=== PATIENT | male | born 1945 | race Caucasian/White ===

== ENCOUNTER 2018-04-30 22:21 | Inpatient (IN) | payer OTHER ==
[2018-04-30] MEDS ORDERED: ASPIRIN 81 MG CHEWABLE TABLET ONE (22:50)
[2018-04-30 23:03] LABS: Absolute Lymphocytes (CBC) 2.1 K/uL (0.7-4.9); Absolute Monocytes 1.1 K/uL (0.1-1.3); Absolute Neutrophil 9.4 K/uL (1.8-8.0); Basophils % 0.9 % (0-1.3); Eosinophils % 0.4 % (0-4.4); Hematocrit 47.3 % (39.6-49.0); Lymphocytes % 16.5 % (15.3-44.8); MCH 31.2 pg (27.0-35.0); MCV 93.3 fL (80-100); MPV 8.7 fL (7.6-11.3); Monocytes % 8.8 % (3.3-12.3); RBC Red Blood Cell Count 5.07 M/uL (4.33-5.43)
[2018-04-30 23:09] LABS: Protime INR 1.03
[2018-04-30 23:21] LABS: ALT/SGPT 16 U/L (12-78); AST/SGOT 12 U/L (15-37); Albumin 3.8 g/dL (3.4-5.0); Alkaline Phosphatase 108 U/L (45-117); BUN Blood Urea Nitrogen 20 mg/dL (7-18); Bicarbonate 25 mmol/L (21-32); Bilirubin Direct 0.2 mg/dL (0-0.2); Bilirubin Total 0.6 mg/dL (0.2-1.0); Glucose Level 112 mg/dL (74-106); Magnesium 2.3 mg/dL (1.8-2.4); NT PRO-BNP 350 pg/mL (<125); Protein, Total 8.1 g/dL (6.4-8.2); Sodium Level 140 mmol/L (136-145); Troponin (Emerg Dept Use Only) < 0.02 ng/mL (0.0-0.045)
[2018-05-01] MEDS ORDERED: MORPHINE 4 MG/ML SYR IV PRN (00:03)
[2018-05-01] MEDS ORDERED: MORPHINE 2 MG/ML SYR ONE (00:14)
--- NOTE | 2018-05-01 00:14 | ER ---
Nurse's Notes [facility] Name: Rian Quinteros Age: 72 yrs Sex: Male : 1945 Arrival Date: 04/30/2018 Time: 22:24 Bed 13 Private MD: Diagnosis: Chest pain, unspecified Presentation: 04/30 22:32 Presenting complaint: EMS states: "He lives on a boat, and has been having chest pain jd3 for 2 days. today the [employer] and us picked him up for general weakness and chest pain.". Transition of care: patient was not received from another setting of care. Onset of symptoms was April 28, 2018. Risk Assessment: Do you want to hurt yourself or someone else? Patient reports no desire to harm self or others. Initial Sepsis Screen: Does the patient meet any 2 criteria? No. Patient's initial sepsis screen is negative. Does the patient have a suspected source of infection? No. Patient's initial sepsis screen is negative. Care prior to arrival: None. 22:32 Method Of Arrival: EMS: [facility] jd3 22:32 Acuity: SHALOM 3 jd3 Triage Assessment: 22:40 General: Appears in no apparent distress. comfortable, Behavior is calm, cooperative, cc3 appropriate for age. Historical: - Allergies: 22:36 No Known Allergies; jd3 - Home Meds: 22:36 None [Active]; jd3 - PMHx: 22:36 Hypertension; Myocardial infarction; jd3 - PSHx: 22:36 Heart stents; Heart Surgery; Carpal Tunnel Repair; Hernia repair; jd3 - Immunization history:: Adult Immunizations not up to date. - Social history:: Smoking status: Patient uses tobacco products, smokes one pack cigarettes per day. - Ebola Screening: : Patient negative for fever greater than or equal to 101.5 degrees Fahrenheit, and additional compatible Ebola Virus Disease symptoms. Screenin:39 Abuse screen: Denies threats or abuse. Nutritional screening: No deficits noted. jd3 Tuberculosis screening: No symptoms or risk factors identified. Fall Risk Ambulatory Aid- None/Bed Rest/Nurse Assist (0 pts). Gait- Weak (10 pts.). Mental Status- Oriented to own ability (0 pts). Total Evans Fall Scale indicates No Risk (0-24 pts). Assessment: 22:37 General: Appears in no apparent distress. comfortable. Pain: Complains of pain in chest cc3 Pain does not radiate. Pain began 2 hours ago. Neuro: Level of Consciousness is awake, alert, obeys commands, Oriented to person, place, time, situation, Appropriate for age. Cardiovascular: Reports chest pain. Respiratory: Airway is patent Respiratory effort is even, unlabored, Respiratory pattern is regular, symmetrical. GI: Abdomen is round non-distended. : No signs and/or symptoms were reported regarding the genitourinary system. EENT: No signs and/or symptoms were reported regarding the EENT system. Derm: Wound noted right forearm. Musculoskeletal: Circulation, motion, and sensation intact. Range of motion: intact in all extremities. 23:30 Reassessment: Patient appears in no apparent distress at this time. Patient and/or cc3 family updated on plan of care and expected duration. Pain level reassessed. Patient is alert, oriented x 3, equal unlabored respirations, skin warm/dry/pink. 05/01 00:15 Reassessment: Patient appears in no apparent distress at this time. Patient and/or cc3 family updated on plan of care and expected duration. Pain level reassessed. Patient is alert, oriented x 3, equal unlabored respirations, skin warm/dry/pink. 01:15 Reassessment: Patient appears in no apparent distress at this time. Patient and/or cc3 family updated on plan of care and expected duration. Pain level reassessed. Patient is alert, oriented x 3, equal unlabored respirations, skin warm/dry/pink. Patient for admission, room available in 420. Report handed over to MAGGI Quinn for continuity of care. 01:30 Reassessment: Patient left ER for admission vitally stable by wheelchair escorted by MAGGI Casper. Vital Signs: 04/30 22:36 BP 163 / 93; Pulse 70; Resp 17 S; Temp 99.9(O); Pulse Ox 99% on R/A; Weight 68.04 kg jd3 (R); Height 6 ft. 1 in. (185.42 cm) (R); Pain 06/03; 23:24 BP 172 / 90; Pulse 73; Resp 18 S; Pulse Ox 98% on R/A; cc3 05/01 00:20 BP 163 / 75; Pulse 75; Resp 17 S; Pulse Ox 98% on R/A; cc3 01:02 BP 157 / 88; Pulse 65; Resp 14 S; Pulse Ox 97% on R/A; cc3 04/30 22:36 Body Mass Index 19.79 (68.04 kg, 185.42 cm) jd3 ED Course: 04/30 22:24 Patient arrived in ED. ds1 22:30 Dallas Hensley PA is PHCP. cp 22:30 Reid Hoskins MD is Attending Physician. cp 22:35 Triage completed. jd3 22:37 Mayuri Arrington is Primary Nurse. cc3 22:38 Arm band placed on. EKG completed in triage. Results shown to MD. jd3 22:38 Patient maintains SpO2 saturation greater than 95% on room air. jd3 22:39 Patient has correct armband on for positive identification. Placed in gown. Bed in low jd3 position. Call light in reach. Side rails up X 1. equipment monitor phototypesetting on. Pulse ox on. NIBP on. 22:46 XRAY Chest (1 view) In Process Unspecified. EDMS 22:50 Inserted saline lock: 20 gauge in left antecubital area, using aseptic technique. Blood cc3 collected. 05/01 00:13 George Hazel MD is Hospitalizing Provider. cp 01:15 No provider procedures requiring assistance completed. cc3 01:15 Patient admitted, IV remains in place. cc3 Administered Medications: 04/30 22:45 Drug: Aspirin Chewable Tablet 324 mg Route: PO; cc3 23:00 Follow up: Response: No adverse reaction cc3 05/01 00:05 Drug: Metoprolol 25 mg Route: PO; cc3 01:00 Follow up: Response: No adverse reaction; Blood pressure is lowered cc3 00:07 Drug: NS 0.9% 250 ml Route: IV; Rate: bolus; Site: left antecubital; cc3 00:35 Follow up: Response: No adverse reaction; IV Status: Completed infusion; IV Intake: cc3 250ml 00:10 Drug: morphine 2 mg Route: IVP; Site: left antecubital; cc3 00:30 Follow up: Response: No adverse reaction; Pain is decreased cc3 00:40 Drug: NS 0.9% 1000 ml Route: IV; Rate: 75 ml/hr; Site: left antecubital; cc3 01:07 Follow up: Response: No adverse reaction; IV Status: Infusion continued upon admission cc3 Intake: 00:35 IV: 250ml; Total: 250ml. cc3 Outcome: 00:13 Decision to Hospitalize by Provider. cp 01:15 Admitted to Tele accompanied by nurse, via wheelchair, room 420, with chart, Report cc3 called to MAGGI Quinn 01:15 Condition: stable 01:15 Instructed on the need for admit, Demonstrated understanding of instructions. 01:32 Patient left the ED. cc3 Signatures: Dispatcher [employer] EDME AguillonJenn barillas ds1 Dallas Hensley PA PA cp Davies, Jonathon, RN RN jd3 Mayuri Arrington cc3 Corrections: (The following items were deleted from the chart) 04:32 01:30 Reassessment: Patient left ER for admission vitally stable by wheelchair. cc3 cc3
--- NOTE | 2018-05-01 00:14 | EDPHYS ---
Physician Documentation [facility] Name: Rian Quinteros Age: 72 yrs Sex: Male : 1945 Arrival Date: 04/30/2018 Time: 22:24 Bed 13 Private MD: ED Physician Reid Hoskins HPI: 04/30 22:35 This 72 yrs old Male presents to ER via EMS with complaints of Chest Pain. cp 22:35 Onset: The symptoms/episode began/occurred 2 day(s) ago. cp 22:35 The patient or guardian reports chest pain that is located primarily in the anterior cp chest wall, left. 22:35 The pain does not radiate. Associated signs and symptoms: Pertinent positives: general cp weakness, Pertinent negatives: abdominal pain, cough, diaphoresis, dizziness, headache, lower extremity pain, lower extremity swelling, palpitations, shortness of breath, syncope, vomiting. The chest pain is described as aching. Duration: The patient or guardian reports multiple episodes, that wax and wane. Historical: - Allergies: 22:36 No Known Allergies; jd3 - Home Meds: 22:36 None [Active]; jd3 - PMHx: 22:36 Hypertension; Myocardial infarction; jd3 - PSHx: 22:36 Heart stents; Heart Surgery; Carpal Tunnel Repair; Hernia repair; jd3 - Immunization history:: Adult Immunizations not up to date. - Social history:: Smoking status: Patient uses tobacco products, smokes one pack cigarettes per day. - Ebola Screening: : Patient negative for fever greater than or equal to 101.5 degrees Fahrenheit, and additional compatible Ebola Virus Disease symptoms. ROS: 22:40 Constitutional: Negative for body aches, chills, fever, poor PO intake. cp 22:40 Eyes: Negative for injury, pain, redness, and discharge. cp 22:40 ENT: Negative for drainage from ear(s), ear pain, sore throat, difficulty swallowing, difficulty handling secretions. 22:40 Cardiovascular: Positive for chest pain, Negative for edema, palpitations. 22:40 Respiratory: Negative for cough, shortness of breath, wheezing. 22:40 Abdomen/GI: Negative for abdominal pain, vomiting, diarrhea, constipation, anorexia, black/tarry stool, rectal bleeding. 22:40 Back: Negative for pain at rest, pain with movement. 22:40 : Negative for urinary symptoms. 22:40 Skin: Negative for cellulitis, rash. 22:40 Neuro: Positive for general weakness, Negative for altered mental status, dizziness, headache, syncope, near syncope. 22:40 All other systems are negative. Exam: 22:35 ECG was reviewed by the Attending Physician. cp 22:45 Constitutional: The patient appears in no acute distress, alert, awake, cp non-diaphoretic, non-toxic, well developed, well nourished. 22:45 Head/Face: Normocephalic, atraumatic. Eyes: Pupils equal round and reactive to light, cp extra-ocular motions intact. Lids and lashes normal. Conjunctiva and sclera are non-icteric and not injected. Cornea within normal limits. Periorbital areas with no swelling, redness, or edema. ENT: Nares patent. No nasal discharge, no septal abnormalities noted. Tympanic membranes are normal and external auditory canals are clear. Oropharynx with no redness, swelling, or masses, exudates, or evidence of obstruction, uvula midline. Mucous membranes moist. Neck: Trachea midline, no thyromegaly or masses palpated, and no cervical lymphadenopathy. Supple, full range of motion without nuchal rigidity, or vertebral point tenderness. No Meningismus. Chest/axilla: Normal chest wall appearance and motion. Nontender with no deformity. No lesions are appreciated. 22:45 Cardiovascular: Rate: normal, Rhythm: regular, Pulses: Pulses are 2+ in right radial artery and left radial artery. Heart sounds: murmur, not appreciated, rub, not appreciated, gallop, not appreciated, Edema: is not appreciated, JVD: is not appreciated. 22:45 Respiratory: the patient does not display signs of respiratory distress, Respirations: normal, no use of accessory muscles, no retractions, no splinting, no tachypnea, labored breathing, is not present, Breath sounds: are clear throughout, no decreased breath sounds, no stridor, no wheezing. 22:45 Abdomen/GI: Inspection: abdomen appears normal, Bowel sounds: active, all quadrants, Palpation: abdomen is soft and non-tender, in all quadrants. 22:45 Back: pain, is absent, ROM is normal. 22:45 Skin: cellulitis, is not appreciated, no rash present. 22:45 Neuro: Orientation: to person, place \T\ time. Mentation: is normal, Cerebellar function: is grossly normal, Motor: moves all fours, strength is normal, Sensation: is normal. Vital Signs: 22:36 BP 163 / 93; Pulse 70; Resp 17 S; Temp 99.9(O); Pulse Ox 99% on R/A; Weight 68.04 kg jd3 (R); Height 6 ft. 1 in. (185.42 cm) (R); Pain /; 23:24 BP 172 / 90; Pulse 73; Resp 18 S; Pulse Ox 98% on R/A; cc3 05/01 00:20 BP 163 / 75; Pulse 75; Resp 17 S; Pulse Ox 98% on R/A; cc3 01:02 BP 157 / 88; Pulse 65; Resp 14 S; Pulse Ox 97% on R/A; cc3 04/30 22:36 Body Mass Index 19.79 (68.04 kg, 185.42 cm) jd3 MDM: 04/30 22:31 Patient medically screened. cp 23:59 Data reviewed: vital signs, nurses notes, lab test result(s), EKG, radiologic studies, cp plain films. Response to treatment: the patient's symptoms have markedly improved after treatment, and as a result, I will admit patient. Physician consultation: George Hazel MD was called at 00:00, was contacted at 00:00, regarding admission, to the telemetry unit. patient's condition. 12 22:31 Order name: Basic Metabolic Panel; Complete Time: 23:36 cp 12 23:36 Interpretation: Normal except: GLUC 112; BUN 20; GFR 54. cp 04/30 22:31 Order name: CBC with Diff; Complete Time: 23:36 cp 04/30 23:37 Interpretation: Normal except: WBC 12.8; NEUT A 9.4. cp 04/30 22:31 Order name: LFT's; Complete Time: 23:36 cp 04/30 23:57 Interpretation: Normal except: AST 12; GLOB 4.3; A/G 0.9. cp 04/30 22:31 Order name: Magnesium; Complete Time: 23:36 cp 04/30 22:31 Order name: NT PRO-BNP; Complete Time: 23:36 cp 04/30 23:58 Interpretation: NT PRO-BNP 350. cp 04/30 22:31 Order name: PT-INR; Complete Time: 23:36 cp 04/30 22:31 Order name: Troponin (emerg Dept Use Only); Complete Time: 23:36 cp 05/01 00:13 Order name: Basic Metabolic Panel EDMS 05/01 00:13 Order name: Basic Metabolic Panel EDMS 05/01 00:13 Order name: CBC with Automated Diff EDMS 05/01 00:13 Order name: CBC with Automated Diff EDMS 05/01 00:13 Order name: Lipid Profile EDMS 05/01 00:14 Order name: Lipid Profile EDMS 05/01 00:14 Order name: Troponin I EDMS 04/30 22:31 Order name: XRAY Chest (1 view) cp 04/30 22:31 Order name: EKG; Complete Time: 22:32 cp 04/30 22:31 Order name: Cardiac monitoring; Complete Time: 22:38 cp 04/30 22:31 Order name: EKG - Nurse/Tech; Complete Time: 22:38 cp 05/01 00:13 Order name: CONS Physician Consult EDMS 05/01 00:13 Order name: Heart Healthy EDMS 05/01 00:13 Order name: EKG Electrocardiogram EDMS 05/01 00:13 Order name: EKG Electrocardiogram EDMS 05/01 00:13 Order name: EKG Electrocardiogram EDMS 05/01 00:14 Order name: Troponin I EDMS 05/01 00:14 Order name: Troponin I EDMS 04/30 22:31 Order name: IV Saline Lock; Complete Time: 23:02 cp 04/30 22:31 Order name: Labs collected and sent; Complete Time: 23:03 cp 04/30 22:31 Order name: O2 Per Protocol; Complete Time: 22:38 cp 04/30 22:31 Order name: O2 Sat Monitoring; Complete Time: 22:38 cp 04/30 23:37 Order name: Urine Dipstick-Ancillary (obtain specimen); Complete Time: 04:34 cp EC:35 Rate is 70 beats/min. Rhythm is regular. RI interval is prolonged at 208 msec. QRS cp interval is prolonged at 102 msec. QT interval is normal. Interpreted by me. Reviewed by me. Administered Medications: 22:45 Drug: Aspirin Chewable Tablet 324 mg Route: PO; cc3 23:00 Follow up: Response: No adverse reaction cc3 05/01 00:05 Drug: Metoprolol 25 mg Route: PO; cc3 01:00 Follow up: Response: No adverse reaction; Blood pressure is lowered cc3 00:07 Drug: NS 0.9% 250 ml Route: IV; Rate: bolus; Site: left antecubital; cc3 00:35 Follow up: Response: No adverse reaction; IV Status: Completed infusion; IV Intake: cc3 250ml 00:10 Drug: morphine 2 mg Route: IVP; Site: left antecubital; cc3 00:30 Follow up: Response: No adverse reaction; Pain is decreased cc3 00:40 Drug: NS 0.9% 1000 ml Route: IV; Rate: 75 ml/hr; Site: left antecubital; cc3 01:07 Follow up: Response: No adverse reaction; IV Status: Infusion continued upon admission cc3 Disposition: 06:20 Co-signature as Attending Physician, Reid Hoskins MD Available for consultation at ps1 all times. . Disposition: 05/01/18 00:13 Hospitalization ordered by George Hazel for Observation. Preliminary diagnosis is Chest pain, unspecified. - Bed requested for Telemetry/MedSurg (observation). - Status is Observation. cc3 - Condition is Stable. - Problem is new. - Symptoms have improved. UTI on Admission? No Signatures: Dispatcher [employer] EDMichelle Jimenes RN RN Dallas Sheldon PA PA cp Davies, Jonathon, RN RN jd3 Singer, Phillip, MD MD ps1 Cordel, Charlene cc3 Corrections: (The following items were deleted from the chart) 04/30 23:37 23:37 Normal except: WBC 12.8. cp cp 05/01 00:31 00:13 Hospitalization Ordered by George Hazel MD for Observation. Preliminary mw diagnosis is Chest pain, unspecified. Bed requested for Telemetry/MedSurg (observation). Status is Observation. Condition is Stable. Problem is new. Symptoms have improved. UTI on Admission? No. cp 01:32 00:31 05/01/2018 00:13 Hospitalization Ordered by George Hazel MD for Observation. cc3 Preliminary diagnosis is Chest pain, unspecified. Bed requested for Telemetry/MedSurg (observation). Status is Observation. Condition is Stable. Problem is new. Symptoms have improved. UTI on Admission? No. mw
[2018-05-01] MEDS ORDERED: METOPROLOL TAR 25 MG TAB ONE (00:15)
[2018-05-01] MEDS ORDERED: NA CHLORIDE 0.9% 250 ML ONE (00:15)
[2018-05-01] MEDS ORDERED: NA CHLORIDE 0.9% 1,000 ML ONE (00:15)
[2018-05-01] MEDS: NA CHLORIDE 0.9% 1,000 ML IV SCH ×2 (02:37→13:29)
[2018-05-01 03:02] VITALS: BMI 19.8
[2018-05-01 04:15] LABS: Urine Appearance CLEAR; Urine Bilirubin NEGATIVE (NEG); Urine Blood 2+ (NEG); Urine Color YELLOW; Urine Glucose NEGATIVE (NEG); Urine Protein 2+ (NEG); Urine Specific Gravity 1.025 (1.005-1.030); Urine pH 5.5 (5.0-7.0)
[2018-05-01 04:55] LABS: Urine Microscopic Reflex ORDER UMIC
[2018-05-01 05:24] LABS: Urine Bacteria <20 /HPF (NONE SEEN); Urine Culture Reflex Order REFLEXED
[2018-05-01] MEDS ORDERED: PNEUMOCOCCAL VACCINE 0.5 ML IMVAC ONE (09:00)
[2018-05-01] MEDS ORDERED: INFLUENZA VACCINE (for 3y+) 0.5 ML DOSE IMVAC ONE (09:00)
--- NOTE | 2018-05-01 09:30 | RAD REPORT ---
EXAM DESCRIPTION: Jack Single View04/30/2018 10:46 pm CLINICAL HISTORY: Chest pain COMPARISON: none FINDINGS: The lungs appear clear of acute infiltrate. The heart is normal size. Lungs are moderatel y hyperaerated IMPRESSION: COPD without visualization acute abnormality
[2018-05-01] MEDS: METOPROLOL TAR 50 MG TAB PO SCH ×2 (09:57→21:34)
[2018-05-01] MEDS: ENOXAPARIN 40 MG/0.4 ML SQ SCH (09:57)
[2018-05-01] MEDS: ASPIRIN EC 81 MG TAB PO SCH (09:58)
[2018-05-01] MEDS: ACETAMINOPHEN 500 MG TAB PO PRN ×2 (10:04→23:43)
--- NOTE | 2018-05-01 15:22 | P.HP ---
Certification for Inpatient Patient admitted to: Observation With expected LOS: <2 Midnights Patient will require the following post-hospital care: None Practitioner: I am a practitioner with admitting privileges, knowledge of patient current condition, hospital course, and medical plan of care. Services: Services provided to patient in accordance with Admission requirements found in Title 42 Section 412.3 of the Code of Federal Regulations Patient History Date of Service: 05/01/18 Reason for admission: Chest pain rule out acute coronary syndrome History of Present Illness: Patient is a 72-year-old gentleman with history of coronary artery disease status post 3 stents. He came to the ER because he was having some chest pain. He was on his boat traveling from [place] to [place]. He stopped because he was not feeling well. He pulled up into [place] and he came to the ER. In the emergency room his initial troponins a EKG were negative. He does not take any cardiac meds. He had a cardiac catheterization done about 2 years ago and afterwards was started on cardiac meds. He never followed up and has not taken any of his medications since that time. He will be admitted to the hospital for further evaluation. Allergies No Known Allergies Allergy (Verified 05/01/18 01:45) Home Medications: NK [No Home Meds] 05/01/18 - Past Medical/Surgical History Has patient received pneumonia vaccine in the past: No Diabetic: No -: HTN -: [facility] -: heart stents -: hernia repair -: carpal tunnel repair - Family History Father Medical History: Heart disease Mother History Unknown: Yes Notes: with old age - Social History Smoking Status: Current every day smoker Alcohol use: No CD- Drugs: Yes Caffeine use: Yes Review of Systems 10-point ROS is otherwise unremarkable Physical Examination - Vital Signs Temperature: 98.7 F Blood Pressure: 116/58 Pulse: 63 Respirations: 18 Pulse Ox (%): 96 - Physical Exam General: Alert, In no apparent distress, Oriented x3 HEENT: Atraumatic, PERRLA, Mucous membr. moist/pink, EOMI, Sclerae nonicteric Neck: Supple, 2+ carotid pulse no bruit, No LAD, Without JVD or thyroid abnormality Respiratory: Clear to auscultation bilaterally, Normal air movement Cardiovascular: Regular rate/rhythm, Normal S1 S2, No murmurs Gastrointestinal: Normal bowel sounds, Soft and benign, Non-distended, No tenderness Musculoskeletal: No clubbing, No swelling, No tenderness Integumentary: No rashes Neurological: Normal gait, Normal speech, Normal strength at 5/5 x4 extr, Normal tone, Sensation intact, Cranial nerves 3-12 intact, Normal affect Lymphatics: No axilla or inguinal lymphadenopathy - Studies Laboratory Data (last 24 hrs) 04/30/18 22:50: PT 12.2, INR 1.03 04/30/18 22:50: WBC 12.8 H, Hgb 15.8, Hct 47.3, Plt Count 175 04/30/18 22:50: Sodium 140, Potassium 4.0, BUN 20 H, Creatinine 1.30, Glucose 112 H, Magnesium 2.3, Total Bilirubin 0.6, AST 12 L, ALT 16, Alkaline Phosphatase 108 Assessment & Plan - Problems (Diagnosis) (1) Chest pain, rule out acute myocardial infarction Current Visit: Yes Status: Acute (2) CAD (coronary artery disease) Current Visit: Yes Status: Acute (3) HTN (hypertension) Current Visit: Yes Status: Acute - Plan 1. Serial troponins and EKG 2. Cardiology consultation 3. Echocardiogram andfurther reccomendation pending cardiology evaluation 4. Anti-platelet therapy, anti coagulation, beta-rolanda, statin, and O2 as needed 5. IV morphine for pain 6. Nitro p.r.n. Discharge Plan: Home Plan to discharge in: 48 Hours - Advance Directives Does patient have a Living Will: No Does patient have a Durable POA for Healthcare: No - Code Status/Comfort Care Code Status Assessed: Yes Code Status: Full Code Critical Care: No Time Spent Managing PTS Care (In Minutes): 54
[2018-05-01] MEDS: NICOTINE 21 MG/PAT TD SCH (15:55)
[2018-05-01] MEDS: ALPRAZOLAM 0.25 MG TABLET PO PRN (23:38)
[2018-05-02] MEDS: NA CHLORIDE 0.9% 1,000 ML IV SCH ×2 (05:40→18:00)
[2018-05-02 06:19] LABS: Absolute Lymphocytes (CBC) 3.2 K/uL (0.7-4.9); Absolute Monocytes 1.1 K/uL (0.1-1.3); Absolute Neutrophil 6.1 K/uL (1.8-8.0); Basophils % 0.8 % (0-1.3); Eosinophils % 1.6 % (0-4.4); Hematocrit 40.8 % (39.6-49.0); Lymphocytes % 29.9 % (15.3-44.8); MCH 31.8 pg (27.0-35.0); MCV 92.7 fL (80-100); MPV 9.4 fL (7.6-11.3); Monocytes % 10.7 % (3.3-12.3)
[2018-05-02] MEDS: NICOTINE 21 MG/PAT TD SCH (09:28)
[2018-05-02] MEDS: METOPROLOL TAR 50 MG TAB PO SCH ×2 (09:29→20:31)
[2018-05-02] MEDS: ASPIRIN EC 81 MG TAB PO SCH (09:29)
[2018-05-02] MEDS: ENOXAPARIN 40 MG/0.4 ML SQ SCH (09:29)
--- NOTE | 2018-05-02 12:10 | P.PN ---
Subjective Date of Service: 05/02/18 Chief Complaint: Chest pain rule out acute coronary syndrome Subjective: No new changes, No C/O voiced, Improving Physical Examination - Vital Signs Temperature: 97.5 F Blood Pressure: 136/72 Pulse: 70 Respirations: 18 Pulse Ox (%): 97 Assessment And Plan - Plan - Problems (Diagnosis) (1) Chest pain, rule out acute myocardial infarction Current Visit: Yes Status: Acute (2) CAD (coronary artery disease) Current Visit: Yes Status: Acute (3) HTN (hypertension) Current Visit: Yes Status: Acute (4) patient with a history of renal mass, no recent imaging. Will get a renal ultrasound to evaluate. - Plan 1. Serial troponins and EKG 2. Cardiology consultation. Recommendations appreciated 4. Anti-platelet therapy, anti coagulation, beta-rolanda, statin, and O2 as needed 5. IV morphine for pain 6. Nitro p.r.n. 7. Pending heart catheterization with cardiology to tomorrow DVT prophylaxis: Antiplatelet there, aspirin GI prophylaxis: None Diet: Heart healthy, NPO after midnight Disposition: Pending heart catheterization tomorrow Physician Review: Patient Assessed, Agree with Above Assessment and Plan
[2018-05-02] MEDS: ACETAMINOPHEN 500 MG TAB PO PRN (18:03)
--- NOTE | 2018-05-02 20:24 | RAD REPORT ---
EXAM DESCRIPTION: US - Renal Ultrasound-Complete - 05/02/2018 7:58 pm CLINICAL HISTORY: Hx of renal mass, evaluation COMPARISON: No comparisons FINDINGS: Both kidneys are normal in size, shape and echotexture. The right kidney measures 11.0 x 5.0 x 4.2 cm. No hydronephrosis, focal mass or perinephric fluid. The left kidney measures 11.3 x 4.7 x 4.0 cm. No hydronephrosis, focal mass or perinephric fluid. 12 mm benign left renal cyst. The urinary bladder is incompletely distended without gross abnormality seen. The right kidney measures . No hydronephrosis, focal mass or perinephric fluid. IMPRESSION: 12 mm benign left renal cyst.
[2018-05-02] MEDS: ALPRAZOLAM 0.25 MG TABLET PO PRN (20:31)
[2018-05-03] MEDS: ASPIRIN EC 81 MG TAB PO SCH (05:32)
[2018-05-03] MEDS: NA CHLORIDE 0.9% 1,000 ML IV SCH ×3 (05:36→21:21)
[2018-05-03] MEDS: METOPROLOL TAR 50 MG TAB PO SCH ×2 (05:51→21:22)
--- NOTE | 2018-05-03 06:11 | CON ---
Date of Consultation: 05/01/2018 Reason For Consultation: Unstable angina. History Of Present Illness: Mr. Quinteros is a 72-year-old white male who relatively have an interestin g social history. He was actually born in [place] and recently lives in [place] for the last 2 year s on a boat. [place] and stays in different cities on his boat. He was on his way to [facility] his brother in [place], [place], when he developed chest tightness, dyspnea on exertion, left arm radiation. He has a history of hypertension, CABG, myocardial infarction, and stents. The last time he had any work done on his heart or seen physician was approximately 2 years ago when he had a stent done in [place]. He does not remember where. He apparently at that time was also told that sherri rudd had a renal mass, but never followed up on it. He denied any hematuria. Denies any nausea, vomiti ng, diaphoresis, PND, orthopnea, pedal edema, palpitations, or syncope. His EKG was nonspecific. Wh ite count of 12,000. He had UTI. Chest x-ray shows COPD. Allergies: NONE. Medications: At home are none. Review of Systems: Negative. Social History: Positive for tobacco. Family History: Negative. Physical Examination: Vital Signs: Stable, afebrile. HEENT: Negative. Neck: Supple without any bruit, lymphadenopathy, JVD, or thyromegaly. Chest: Clear to auscultation and percussion. Cardiac: Revealed a regular rhythm and rate without any murmurs, gallops, or rubs. Abdomen: Benign. Extremities: Revealed no clubbing, cyanosis, or edema. Diagnostic Data: As stated earlier. Impression And Plan: 1.The patient with history of coronary artery disease status post coronary artery bypass graft and s tent with unstable angina symptoms. The patient needs to be on a beta blockers. He needs to be on a baby aspirin. He needs to be on a statin, needs to have a heart catheterization done. He understan ds the risks and the benefits of the procedure. This will be done on 05/03/2018. 2.History of tobacco abuse. 3.Urinary tract infection. 4.Chronic obstructive pulmonary disease on x-ray. 5.History of renal mass. This was discussed with Dr. Hays. She will order a renal ultrasound on h im. JANN/MELLO Voice ID: [id number] Report ID: [id number]
--- NOTE | 2018-05-03 07:16 | EKG ---
Test Date: 2018-04-30 Test Time: 22:29:55 Research Associate Professor: MEASUREMENT RESULTS: Intervals: Rate: 70 LA: 208 QRSD: 102 QT: 406 QTc: 438 [place]: P: 81 LA: 208 QRS: 86 T: 73 INTERPRETIVE STATEMENTS: Sinus rhythm with marked sinus arrhythmia Otherwise normal ECG No previous ECG available for comparison Electronically Signed On 05-03-18 07:11:26 SENIOR GAME DESIGNER by Rigo Gleason
[2018-05-03] MEDS ORDERED: HEPA 1000U/500MLS 2,000 UNIT/1,000 ML BAG IV ONE ×2 (08:37→15:36)
[2018-05-03] MEDS: NICOTINE 21 MG/PAT TD SCH (09:00)
[2018-05-03] MEDS ORDERED: ATROPINE SULF 1 MG/10 ML SYR IV ONE (15:36)
[2018-05-03] MEDS ORDERED: NA CHLORIDE 0.9% 50 ML ONE (15:36)
[2018-05-03] MEDS ORDERED: FENTANYL CITR 100 MCG/2 ML ONE (15:36)
[2018-05-03] MEDS ORDERED: MIDAZOLAM HCL 2 MG/2 ML INJ ONE (15:36)
--- NOTE | 2018-05-03 16:13 | P.PN ---
Subjective Date of Service: 05/03/18 Chief Complaint: Chest pain rule out acute coronary syndrome Subjective: No new changes, No C/O voiced, Improving Patient seen and examined at bedside. No family at bedside. Chart reviewed and case discussed with nursing staff. Continues to report chest pain, has improved since admission. Review of Systems As noted Physical Examination - Vital Signs Temperature: 97.9 F Blood Pressure: 147/79 Pulse: 56 Respirations: 18 Pulse Ox (%): 98 - Physical Exam General: Alert, In no apparent distress, Oriented x3 HEENT: Atraumatic, PERRLA, EOMI Neck: Supple, JVD not distended Respiratory: Clear to auscultation bilaterally, Normal air movement Cardiovascular: Regular rate/rhythm, Normal S1 S2 Gastrointestinal: Normal bowel sounds, No tenderness Musculoskeletal: No tenderness Integumentary: No rashes Neurological: Normal speech, Normal tone, Normal affect Lymphatics: No axilla or inguinal lymphadenopathy - Studies Microbiology Data (last 24 hrs): 05/01/18 03:00 Clean Catch Urine [place] Count - Final BETWEEN 10,000 & 100,000 CFU/ML 05/01/18 03:00 Clean Catch Urine - Final Assessment And Plan - Plan - Problems (Diagnosis) (1) Chest pain, rule out acute myocardial infarction (2) CAD (coronary artery disease) (3) HTN (hypertension) (4) history of renal mass - Plan 1. Serial troponins and EKG 2. Cardiology consultation. Recommendations appreciated 4. Anti-platelet therapy, anti coagulation, beta-rolanda, statin, and O2 as needed 5. IV morphine for pain 6. Nitro p.r.n. 7. patient with a history of renal mass, no recent imaging. Renal ultrasound only positive for a benign cyst. No further evaluation necessary at this point. 8. Pending heart catheterization with cardiology to tomorrow DVT prophylaxis: Antiplatelet there, aspirin GI prophylaxis: None Diet: Heart healthy, NPO after midnight Disposition: Pending heart catheterization today Physician Review: Patient Assessed, Agree with Above Assessment and Plan
[2018-05-03] MEDS ORDERED: ONDANSETRON 4 MG/2 ML VIAL ONE (16:36)
[2018-05-03] MEDS ORDERED: HYDRALAZINE HCL 20 MG/ML VIAL ONE (16:39)
[2018-05-03] MEDS ORDERED: PRASUGREL (EFFIENT) 10 MG TAB ONE (16:41)
[2018-05-03] MEDS ORDERED: ACETAMINOPHEN 325 MG TABLET PO PRN (18:44)
[2018-05-03] MEDS ORDERED: NA CHLORIDE 0.9% 1,000 ML IV SCH (19:00)
[2018-05-03] MEDS ORDERED: ATORVASTATIN 80 MG TAB PO SCH (21:00)
[2018-05-03] MEDS: ALPRAZOLAM 0.25 MG TABLET PO PRN (21:23)
[2018-05-03] MEDS: NITROGLYCERIN 0.4 MG/TAB SL PRN ×2 (21:32→21:38)
[2018-05-03] MEDS ORDERED: KETOROLAC 30 MG/ML INJ IV ONE (22:41)
--- NOTE | 2018-05-04 03:23 | OP ---
Surgeon: Bladimir Ortega MD Procedures: Left heart catheterization, coronary left ventricular angiography, percutaneous coronary angioplasty of the very proximal part of the circumflex and a midportion of the circumflex trunk. Indications: Unstable angina, chest pain without myocardial necrosis or ST changes. Findings: The patient had an 80% proximal circumflex stenosis and a 70% mid circumflex stenosis, bot h responded to angioplasty and stenting. 3.0 x 16 stents were used for each; actually the stents ove rlapped a little bit. They were close to where he had other stents previously. His left ventricular ejection fraction is normal. Right coronary was totally occluded and filled by collaterals from the left. The LAD and most of the branches of the circumflex were free of any significant disease. Eje ction fraction and wall motion were normal. Left ventricular end-diastolic pressure was normal. Procedure In Detail: The patient was brought to the cardiac medical lab technologist in a fasting state. Sedated wi th Versed and fentanyl. Right femoral approach was used as the radial artery was not easily palpable and Heriberto's test was abnormal. Right femoral artery was entered using an 18-gauge needle. A short J-tip wire was used to cannulate the artery and then a 4-Ecuadorean sheath was placed. We used a JL4, 3D RC, and angled pigtail to angiogram everything. Once we decided to put a stent in, we used an XB 3.5 with side holes guide, changed to a 6-Ecuadorean sheath first, of course. Gave Angiomax, demonstrated a n active clotting time over 350 seconds. We crossed both of the lesions with a Jake wire, pre-dila hubert with a 3.0 x 15 Emerge balloon and then stented each lesion separately with a 3.0 x 16 Synergy. The angiographic result was excellent. The patient had some chest pain immediately after the procedu re, so an angiogram was done and the stent looked just fine. There was no thrombosis or stenosis. T IMI flow was 3. No complications from the procedure. There was an angiogram done of the femoral art dieudonne. Because of difficulty going up with the wire once, we used an exchange technique after that and there was not a significant lesion, just a lot of tortuosity. A sheath angiogram showed adequate an atomy for closure with Angio-Seal. Estimated Blood Loss: 30 cc. Complications: None. Pre Sales Technical Engineer: Dina Fine. SH/MODL Voice ID: [id number] Report ID: [id number]
[2018-05-04 04:07] LABS: Hematocrit 42.4 % (39.6-49.0); MCH 31.6 pg (27.0-35.0); MPV 9.2 fL (7.6-11.3); RBC Red Blood Cell Count 4.56 M/uL (4.33-5.43)
[2018-05-04] MEDS ORDERED: CLOPIDOGREL 75 MG TABLET PO SCH (09:00)
[2018-05-04] MEDS ORDERED: LOSARTAN POTASSIUM 50 MG TABLET PO SCH (09:00)
[2018-05-04] MEDS ORDERED: AMLODIPINE 5 MG TAB PO SCH (09:00)
[2018-05-04] MEDS: NICOTINE 21 MG/PAT TD SCH (09:12)
[2018-05-04] MEDS: ASPIRIN EC 81 MG TAB PO SCH (09:12)
[2018-05-04] MEDS: METOPROLOL TAR 50 MG TAB PO SCH (09:12)
[2018-05-04 10:50] VITALS: O2SAT 96
[2018-05-04] MEDS: NA CHLORIDE 0.9% 1,000 ML IV SCH (11:00)
[2018-05-04 12:55] VITALS: BP 154/75; TEMP 98.7
--- NOTE | 2018-05-05 06:43 | DS ---
Date of Discharge: 05/04/2018 Consultants: Dr. Gleason with Cardiology and Dr. Ortega with Cardiology. Procedure: On 05/03/2018, cardiac catheterization with stent x2. Admitting Diagnoses: 1. Chest pain. 2. Coronary artery disease. 3. Essential hypertension. Discharge Diagnoses: 1. Unstable angina, status post cardiac catheterization with stent x2. 2. Coronary artery disease, [place] artery and [place] heart with angina. 3. Essential hypertension. 4. History of a renal mass. 5. Noncompliance, intentional. Hospital Course: The patient is a 72-year-old male with history of coronary artery disease status post stent x3, who has been noncompliant and not been taking his medications, has had previous stent blockages, was traveling on his boat from [place] to [place]. The patient was admitted to the hospital for chest pain. He was seen by Cardiology. Cardiac enzymes initially were negative. He was taken for heart catheterization and required 2 stents. The patient did have a mildly elevated white blood cell count. UA did show possible cystitis; however, his urine culture showed mixed timur. The patient overall did well postoperatively, did not have any further chest pain. The patient stated that he has plans to take his medications and will not be noncompliant at this time. Did request refills. The patient now plans to go to [facility] with his brother and will have his medications filled on the way. He understands that not taking plavix will likely result in stent thrombosis and possibly even . The patient was then discharged home in a stable condition. Activity: As tolerated. Medications: As per medication reconciliation list. Followup: Follow up with primary care physician in 2-3 days. Follow up with digester cook, Dr. Ortega, in 2 weeks. Return to ER for worsening condition. Diet: Heart healthy. Physical Examination: General: Awake, alert, oriented, no acute distress. CV: S1, S2. No murmurs. Respiratory: Moving air well bilaterally. No wheezing. Gastrointestinal: Abdomen is soft, nontender, nondistended. Positive bowel sounds. Extremities: No clubbing, cyanosis, or edema. Skin: Cath site did not show any hematoma. Neurologic: Nonfocal. Sensation intact to light touch. Code Status: Full. Total time spent discharging the patient was 36 minutes. SA/MODL Voice ID: [id number] Report ID: [id number] MTDZhang
--- NOTE | 2018-05-05 11:55 | PN ---
Date of Progress Note: 05/04/2018 The patient was admitted on 05/02/2018. He had a heart catheterization yesterday with a stent to the circumflex by Dr. Ortega. This was an uneventful procedure. No complication. No blood loss. The entry site of the catheterization was within normal limits. No hematoma. He did not have any have a ny telemetry changes overnight. No chest pain. He can go home today on aspirin, Plavix, metoprolol, and Lipitor and he will follow up with his choice of trimming caser. He will be moving to [facility] for the next few weeks. JANN/MELLO Voice ID: [id number] Report ID: [id number]
== END 2018-05-04 13:19 | disposition home or self-care (01) | DRG 247 ==
LOC: ER 22:21 → 4TH 05-01 01:18 → OBSVTOIN 05-03 12:32
PROVIDERS: ADMIT Hospitalist; ATTEND Family Medicine
PROC: 027035Z Dilation of Coronary Artery, One Artery with Two Drug-eluting Intraluminal Devices, Percutaneous Approach (ICD-10-PCS; principal; 2018-05-03)
PROC: 4A023N7 Measurement of Cardiac Sampling and Pressure, Left Heart, Percutaneous Approach (ICD-10-PCS; 2018-05-03)
PROC: B211YZZ Fluoroscopy of Multiple Coronary Arteries using Other Contrast (ICD-10-PCS; 2018-05-03)
PROC: B215YZZ Fluoroscopy of Left Heart using Other Contrast (ICD-10-PCS; 2018-05-03)
DX: I25.110 Atherosclerotic heart disease of native coronary artery with unstable angina pectoris (principal); I10 Essential (primary) hypertension; N28.89 Other specified disorders of kidney and ureter; Z91.128 Patient's intentional underdosing of medication regimen for other reason; Z95.5 Presence of coronary angioplasty implant and graft; I25.2 Old myocardial infarction; F17.210 Nicotine dependence, cigarettes, uncomplicated; Z95.1 Presence of aortocoronary bypass graft; J44.9 Chronic obstructive pulmonary disease, unspecified
CPT/HCPCS: 36415; 71045; 76770; 80048; 80061; 80076; 81003; 81015; 83735; 83880; 84484; 85025; 85027; 85347; 85610; 87086; 87088; 90670; 93005; 93458; 96361; 96365; 96374; 96375; 99285; C1725; C1760; C1893; C9600; G0008; G0009; G0378; J0360; J0583; J1650; J2250; J2270; J2405; J3010; J7030; Q2035